=== PATIENT | male | born 1935 | race Caucasian/White ===

== ENCOUNTER 2018-06-06 17:20 | Inpatient (IN) ==
[2018-06-06] MEDS ORDERED: SALINE FLUSH 10ml SYRINGE IVF PRN (17:32)
[2018-06-06] MEDS ORDERED: NS 1,000 ML IV ONE (17:32)
--- NOTE | 2018-06-06 18:06 | Emergency Department Report ---
General Adult HPI - General Chief complaint: Medical Emergency Stated complaint: heat exhaustion Time Seen by Provider: 06/06/18 17:32 - History of Present Illness HPI narrative: 82-year-old male presents with possible heat exhaustion. Patient has had 2 episodes now in the last 2 weeks where he has gotten outside in the heat and after a few hours of working in the yard has had significant weakness and nausea. He did develop some confusion 2 weeks ago which resolved once he got fluids. However today he went back out into the yard, began to have some symptoms develop as he was actively working in the heat. He became very weak, lightheaded and came inside to lay down. Family is concerned about him in for evaluation. He has no history of any illness recently. No dysuria no hesitancy no urgency, no coughing. Has a slight headache right now but has not had any issues with headaches in the past. Heart began racing this afternoon and he noted shortness of breath with exertion, but was fine at rest. - Related Data Home Medications Medication Instructions Recorded Confirmed Atorvastatin Calcium 20 mg PO HS #0 05/18/15 06/06/18 CALCIUM CITRATE 315mg + D 2 tab PO HS 07/19/17 06/06/18 [Citrical + D] Aspirin [Adult Aspirin] 81 mg PO HS 05/21/18 06/06/18 Finasteride [Proscar] 5 mg PO HS 05/21/18 06/06/18 Lisinopril [Prinivil] 2.5 mg PO HS 05/21/18 06/06/18 Multivitamin [One Daily] 1 tab PO HS 05/21/18 06/06/18 Nitroglycerin [Nitrostat] 0.4 mg SL Q5MIN3 PRN 05/21/18 06/06/18 Warfarin [Coumadin] 1 mg PO 5XW 05/21/18 06/06/18 Warfarin [Coumadin] 5 mg PO 5XW 05/21/18 06/06/18 Warfarin [Coumadin] 2 mg PO WESA 06/06/18 06/06/18 Allergies Allergy/AdvReac Type Severity Reaction Status Date / Time morphine AdvReac Severe VERY Verified 06/06/18 18:07 AGITATED, UNABLE TO CALM DOWN Review of Systems All systems: reviewed and negative except as stated PFSH Patient Stated Medical History Other HEENT Yes: glasses Cardiac Arrhythmia Yes: afib/flutter Hypertension Yes Valvular Heart Disease Yes Gastroesophageal Reflux Yes Disease Clotting Problems Yes Other Hematologic Yes: factor 5 liden Surgical History: tonsils. cardiac bypass: valve replacement (mitral valve prolapse repair). (prostate biopsy, vasectomy) - Social History Smoking status: Never smoker Physical Exam - Limitations Limitations: no limitations - General General appearance: alert - Normal Exams: Head:: Normocephalic without trauma Chest/Respirations:: Clear all dickson, with good airflow, and symmetry bilaterally Abdomen:: Bowel sounds positive, soft, non-tender, non-distended, no hepatosplenomegaly, masses or bruits noted - Cardiovascular Cardiovascular exam: Present: normal rhythm, tachycardia Course Vital Signs Temperature 98.0 F 06/06/18 17:26 Pulse Rate 113 H 06/06/18 17:26 Respiratory Rate 20 06/06/18 17:26 Blood Pressure 137/91 H 06/06/18 17:26 Pulse Oximetry 96 06/06/18 17:26 Temperature 98.0 F 06/06/18 17:26 Pulse Rate 113 H 06/06/18 17:45 Respiratory Rate 16 06/06/18 17:45 Blood Pressure 129/89 06/06/18 17:45 Pulse Oximetry 97 06/06/18 17:45 Medical Decision Making - [facility] [place] Narrative Medical decision making narrative: Peripheral IV placed with 1 L normal saline bolus. [place] is that this is dehydration and heat exhaustion. However EKG calls atrial fibrillation. Cardiac workup started this point with troponin ordered. Due to symptoms, lactate and blood cultures were also ordered. CBC, CMP, UA pending. Chest x-ray pending. Labs return appropriate, patient is in atrial fibrillation. Patient was given IV fluids, plan was to rate control with Cardizem, however patient rate controlled with IV fluids and continued with atrial fibrillation with heart rate 60-70. Blood pressure stable. Troponin and other labs returned negative. I have spent the last 45 minutes attempting to contact the patient's teacher's assistant or on-call doctor. I am waiting for a callback at this time. I was ultimately able to speak with Dr. Hernandez, director semiconductor. He declined transfer this he felt that admit was unnecessary at this time. I contacted Dr. Almeida who is covering M [facility]lett call for us. He agreed to admit the patient, patient be placed in observation for atrial fibrillation, dehydration. - Differential Diagnosis atrial fibrillation, dehydration, heat exhaustion - Medical Records Medical records reviewed: Yes: I reviewed the patient's medical records. - Lab Data Result diagrams: 06/06/18 17:49 06/06/18 17:49 Lab Results 06/06/18 Range/Units 17:49 WBC 4.7 (4.5-11.0) T/MM3 RBC 4.50 (4.50-5.90) M/MM3 Hgb 13.9 (13.5-17.5) GM/DL Hct 42.0 (41-53) % MCV 93.3 (80-100) UM3 MCH 30.9 (26-34) UUG MCHC 33.1 (31-37) GM/DL RDW Std Deviation 43.6 (36.9-50.2) FL Plt Count 191 (130-400) T/MM3 MPV 9.8 (9.4-12.4) UM3 Immature Gran % (Auto) 0.2 (0.0-0.5) % Neut % (Auto) 59.8 (33-66) % Lymph % (Auto) 24.7 (23-45) % [place] % (Auto) 9.8 H (0-9.0) % Eos % (Auto) 4.9 H (0-4) % Baso % (Auto) 0.6 (0-2) % Neut # (Auto) 2.8 (1.8-7.7) T/MM3 Lymph # (Auto) 1.2 (1-4.8) T/MM3 [place] # (Auto) 0.5 (0-0.8) T/MM3 Eos # (Auto) 0.2 (0-0.5) T/MM3 Baso # (Auto) 0.0 (0-0.2) T/MM3 Abs Immat Gran (auto) 0.01 (0.00-0.03) T/MM3 - EKG Data EKG #1 EKG attestation: Yes: I reviewed and interpreted this EKG. EKG results narrative: 112 bpm Rate: tachycardia Rhythm: other (appears to be sinus tach, however machine reads as atrial fibrillation with RVR.) Mccall/QRS: left axis deviation Interpretation: nonspecific ST-T wave changes Disposition Clinical Impression: A-fib, Dehydration Condition: Stable Prescriptions: No Action Atorvastatin Calcium 20 mg PO HS #0 Aspirin [Adult Aspirin] 81 mg PO HS Multivitamin [One Daily] 1 tab PO HS Finasteride [Proscar] 5 mg PO HS Warfarin [Coumadin] 5 mg PO 5XW Warfarin [Coumadin] 1 mg PO 5XW Nitroglycerin [Nitrostat] 0.4 mg SL Q5MIN3 PRN PRN Reason: Chest Pain Warfarin [Coumadin] 2 mg PO WESA CALCIUM CITRATE 315mg + D [Citrical + D] 2 tab PO HS Lisinopril [Prinivil] 2.5 mg PO HS Referrals: Junior Salinas MD [Primary Care Provider] - Time of Disposition: 19:57 - Seen By: physician
[2018-06-06] MEDS ORDERED: DiltiaZEM 25 MG/5 ML INJECTION IVP ONE (19:06)
[2018-06-06] MEDS ORDERED: NS 1,000 ML IV SCH (19:30)
[2018-06-06] MEDS ORDERED: SALINE FLUSH 10ml SYRINGE IV PRN (20:43)
[2018-06-06] MEDS ORDERED: NITROGLYCERIN 0.4 MG SUBLINGUAL TABLET SL PRN (20:55)
[2018-06-06] MEDS ORDERED: CALCIUM CITRATE 315mg + VIT.D 250units TABLET PO SCH (21:00)
[2018-06-06] MEDS ORDERED: MULTI-VITAMIN PLAIN TABLET PO SCH (21:00)
[2018-06-06] MEDS: LISINOPRIL 2.5 MG TABLET PO SCH (23:05)
[2018-06-06] MEDS: ATORVASTATIN 20 MG TABLET PO SCH (23:06)
[2018-06-06] MEDS: FINASTERIDE 5 MG TABLET PO SCH (23:06)
[2018-06-06] MEDS: ASPIRIN *EC* 81 MG TABLET PO SCH (23:07)
[2018-06-06 23:31] VITALS: BMI 26.7
[2018-06-07] MEDS ORDERED: WARFARIN 1 MG TABLET PO SCH (09:00)
--- NOTE | 2018-06-07 11:29 | Cardiology History & Physical ---
History of Present Illness Chief complaint: Atrial Fibrillation with RVR HPI: Pt is an 82-year-old male with a PMH including paroxysmal atrial fibrillation/ atrial flutter with previous cardioversion,HTN, Heart Failure, CAD s/p CABG ( small bypass on backside of heart), MV repair (on Coumadin therapy, managed by Dr. Taveras), Premature Ventricular Contractions, Factor V Liden Syndrome, and GERD presented with possible heat exhaustion. Patient has had 2 episodes now in the last 2 weeks where he has gotten outside in the heat and after a few hours of working in the yard has had significant weakness and nausea. He did develop some confusion 2 weeks ago which resolved once he got fluids. However yesterday he went back out into the yard, began to have some symptoms develop as he was actively working in the heat. He became very weak, lightheaded and came inside to lay down. Family is concerned about him in for evaluation. He has no history of any illness recently. No dysuria no hesitancy no urgency, no coughing. He had a slight headache upon presentation, but has not had any issues with headaches in the past. Heart began racing yesterday afternoon and he noted shortness of breath with exertion only. Pt is routinely seen by Dr. Taveras. In the ER, peripheral IV was placed with 1 L normal saline bolus given. EKG indicated atrial fibrillation. The plan was to rate control with Cardizem, however patient rate controlled with IV fluids and continued with atrial fibrillation with heart rate 60-70. Blood pressure stable. Troponin and other labs returned negative. Overnight, patient has experienced both bradycardia with pulses in the 40s and 50s with 1st degree AV block, as well as frequent PVCs with pulse up to 112. Pt is admitted to for further evaluation and workup. Review of Systems - Constitutional Constitutional: Absent: chills, fever(s), weakness - EENMT Eyes: Absent: change in vision Balance: Absent: vertigo Mouth/Throat: Absent: sore throat - Cardiovascular Cardiovascular: Absent: chest pain, palpitations, syncope, orthopnea, edema Rhythm: Present: regular rhythm Vascular: Absent: pedal edema - Respiratory Respiratory: Absent: cough, dyspnea, wheezing - Gastrointestinal Gastrointestinal: Absent: abdominal pain, constipation, diarrhea, nausea, vomiting - Musculoskeletal Musculoskeletal: Absent: abnormal gait - Integumentary/Breasts Integumentary: Absent: erythema, rash, swelling, wounds - Neurological Neurological: Absent: abnormal speech, dizziness, vertigo - Psychiatric Psychiatric: Absent: anxiety, depression - Endocrine Endocrine: Absent: palpitations - Hematologic/Lymphatic Hematologic/Lymphatic: Absent: easy bleeding, easy bruising PFS Patient Stated Medical History Other HEENT Yes: glasses Cardiac Arrhythmia Yes: afib/flutter Hypertension Yes Valvular Heart Disease Yes Gastroesophageal Reflux Yes Disease Clotting Problems Yes Other Hematologic Yes: factor 5 liden Surgical History: tonsils. cardiac bypass: valve replacement (mitral valve prolapse repair). (prostate biopsy, vasectomy) Family History: Mother - from CHF in her 70s Father - from stroke in his 90s - Social History Smoking status: Never smoker Substance use type: does not use Alcohol intake frequency: does not drink Current occupational status: retired Current residence: [facility] Medications Home Medications Medication Instructions Recorded Confirmed Type Atorvastatin Calcium 20 mg PO HS #0 05/18/15 06/06/18 History CALCIUM CITRATE 315mg + D 2 tab PO HS 07/19/17 06/06/18 History [Citrical + D] Aspirin [Adult Aspirin] 81 mg PO HS 05/21/18 06/06/18 History Finasteride [Proscar] 5 mg PO HS 05/21/18 06/06/18 History Lisinopril [Prinivil] 2.5 mg PO HS 05/21/18 06/06/18 History Multivitamin [One Daily] 1 tab PO HS 05/21/18 06/06/18 History Nitroglycerin [Nitrostat] 0.4 mg SL Q5MIN3 PRN 05/21/18 06/06/18 History Warfarin [Coumadin] 1 mg PO 5XW 05/21/18 06/06/18 History Warfarin [Coumadin] 5 mg PO 5XW 05/21/18 06/06/18 History Warfarin [Coumadin] 2 mg PO WESA 06/06/18 06/06/18 History Allergies Allergy/AdvReac Type Severity Reaction Status Date / Time morphine AdvReac Severe VERY Verified 06/06/18 18:07 AGITATED, UNABLE TO CALM DOWN Exam Vital signs: Temperature 97.7 F 06/07/18 08:00 Pulse Rate 44 L 06/07/18 08:00 Respiratory Rate 18 06/07/18 08:00 Blood Pressure 139/78 06/07/18 08:00 Pulse Oximetry 95 06/07/18 08:00 - Constitutional no acute distress, well nourished, well developed, cooperative - Routine HEENT Exam Head: Present: normocephalic, atraumatic Eye: Present: PERRL Nose: moist mucous membranes - Routine Neck Exam Present: supple, trachea midline. Absent: JVD - Routine Chest/Breast/Axilla Exam Chest wall: Absent: mass, pacemaker - Routine Respiratory Exam Present: CTA bilaterally. Absent: accessory muscle use, dyspnea, rhonchi, wheezes, crackles - Routine Cardiovascular Exam Present: S1, S2, bradycardia. Absent: JVD - Routine Abdominal Exam Present: soft, non tender - Routine Extremities Exam Present: pulses intact, normal capillary refill. Absent: cyanosis, clubbing, edema - Routine Skin Exam Present: intact, dry, warm, normal turgor. Absent: cyanosis - Routine Neurological Exam Present: alert, oriented X3, moving all extremities, normal speech - Routine Psychiatric Exam Present: normal affect, normal thought process Results 06/07/18 03:38 06/07/18 03:38 Cardiac Enzymes 06/06/18 Range/Units 17:49 AST 32 (17-59) U/L Troponin I < 0.012 (0-0.12) ng/ml CBC 06/06/18 06/07/18 Range/Units 17:49 03:38 WBC 4.7 4.7 (4.5-11.0) T/MM3 RBC 4.50 4.03 L (4.50-5.90) M/MM3 Hgb 13.9 12.4 L (13.5-17.5) GM/DL Hct 42.0 38.3 L (41-53) % Plt Count 191 181 (130-400) T/MM3 Neut # (Auto) 2.8 2.8 (1.8-7.7) T/MM3 Lymph # (Auto) 1.2 1.1 (1-4.8) T/MM3 [place] # (Auto) 0.5 0.5 (0-0.8) T/MM3 Eos # (Auto) 0.2 0.2 (0-0.5) T/MM3 Baso # (Auto) 0.0 0.0 (0-0.2) T/MM3 Comprehensive Metabolic Panel 06/06/18 06/07/18 Range/Units 17:49 03:38 Sodium 146 147 H (136-146) MEQ/L Potassium 4.3 4.0 (3.6-5) MEQ/L Chloride 108 H 111 H (98-107) MEQ/L Carbon Dioxide 29 30 (22-30) MEQ/L BUN 20.0 20.0 (9-20) MG/DL Creatinine 1.0 0.9 (0.8-1.5) mg/dL Glucose 90 75 (75-110) MG/DL Calcium 9.2 8.7 (8.4-10.2) MG/DL AST 32 (17-59) U/L ALT 19 (1-50) U/L Alkaline Phosphatase 55 (38-126) U/L Total Protein 6.8 (6.3-8.2) g/dL Albumin 4.0 (3.5-5.0) g/dL Intake and Output 06/06/18 06/07/18 06/07/18 22:59 06:59 14:59 Intake Total 1827.5 / 1827.5 0 / 0 360 / 360 Balance 1827.5 / 1827.5 0 / 0 360 / 360 Intake: IV 1027.5 / 1027.5 0 / 0 Ns 1,000 ml @ 150 mls/hr IV . 1027.5 / 1027.5 0 / 0 Q6H40M [facility] Rx#:[id number] Oral 800 / 800 360 / 360 Other: # Voids 1 1 Weight 77.5 kg - Imaging and Cardiology Echo: pending EKG results: report reviewed - EKG Interpretation EKG shows: bradycardia EKG interpretations - EKG EKG shows: bradycardia - Dysrhythmias Sinus rhythms and dysrhythmias: sinus rhythm Supraventricular dysrhythmia: atrial fibrillation Ventricular dysrhythmias: ventricular premature complexes - Blocks, axis, hypertrophy, ST abn AV and intraventricular conduction: 1 AV block Chamber hypertrophy or enlargement: left ventricular hypertrophy or enlargement (LVE) Repolarization changes or abnormalities: nonspecific abnormality, ST segment, and/or T wave Hospital Course This is a general summary of the patient's hospital course. For more details refer to the complete medical record. 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 Current visit: Yes Status: Chronic (4) Hypertension Current visit: Yes Status: Acute (5) Valvular heart disease Current visit: Yes Status: Acute (6) Bradycardia Current visit: Yes Status: Chronic (7) Premature ventricular complex Current visit: Yes Status: Chronic (8) GERD (gastroesophageal reflux disease) Current visit: Yes Status: Chronic (9) Hematologic abnormality Current visit: Yes Status: Chronic (10) Chronic anticoagulation Current visit: Yes Status: Chronic - Assessment and Plan Paroxysmal Atrial Fibrillation/Atrial Flutter -Spontaneously Converted following IV fluid administration -Initial ECG: Atrial Fibrillation with RVR, poss LVH, NS-T wave abnormality, HR 112 -06/07/2018 ECG: SB with 1st degree AV block, occasional PVCs, poss LVH, prolonged QT, possible right ventricular conduction delay, HR 55 -Chads-Vasc score - 6/7 -Chronically anticoagulated with Coumadin -TSH pending -Echo pending -Monitor lytes to keep K+.4 and Mg+.2 Dehydration -IV bolus of 1L NS Heart Failure -Per patient report -Unknown type at this time -Echo pending -BNP 889 -Appears Euvolemic CAD s/p CABG -Followed by Dr. Taveras -Continue ASA and statin -No BB at this time d/t bradycardia Hypertension -Resume home lisinopril -Monitor Valvular Heart Disease -s/p Mitral Valve Repair -Echo pending Bradycardia -Pt reports chronic, intermittent, asymptomatic bradycardia -Monitor on tele Premature Ventricular Complexes -Pt reports chronic, frequent PVCs -Monitor lytes as above -Monitor on tele Factor V Liden Syndrome -Chronic anticoagulation with coumadin -INR 2.4 Chronic Anticoagulation -For Factor V Liden and PAF -INR 2.4 -Resume home coumadin -Monitor INR
[2018-06-07] MEDS ORDERED: WARFARIN 2 MG TABLET PO SCH (12:00)
[2018-06-07] MEDS ORDERED: CALCIUM 500 + VIT D 200 TABLET PO SCH (21:00)
[2018-06-07] MEDS: LISINOPRIL 2.5 MG TABLET PO SCH (22:23)
[2018-06-07] MEDS: ASPIRIN *EC* 81 MG TABLET PO SCH (22:24)
[2018-06-07] MEDS: FINASTERIDE 5 MG TABLET PO SCH (22:24)
[2018-06-07] MEDS: ATORVASTATIN 20 MG TABLET PO SCH (22:24)
[2018-06-08 08:28] VITALS: BP 121/78; RESP 16; TEMP 97.2; O2SAT 95
--- NOTE | 2018-06-08 10:15 | XRay Report ---
INDICATION: weakness PROCEDURE: CHEST 2-VIEWS UPRIGHT (PA & LAT) Encounter: Initial Comparison: 05/21/2018 Findings: The lungs are stable in appearance without new focal airspace consolidation. There is no pleural effusion or pneumothorax. The heart size, pulmonary vascularity and mediastinal contours are unchanged. Prior CABG. IMPRESSION: Stable appearance of the chest without acute cardiopulmonary disease. .
[2018-06-08] MEDS ORDERED: WARFARIN 6 MG TABLET PO SCH (12:00)
--- NOTE | 2018-06-08 13:04 | Discharge Summary ---
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 Almeida in 1-2 weeks in the [facility] Paroxysmal Atrial Fibrillation/Atrial Flutter -Spontaneously Converted following IV fluid administration -Initial ECG: Atrial Fibrillation with RVR, poss LVH, NS-T wave abnormality, HR 112 -06/07/2018 ECG: SB with 1st degree AV block, occasional PVCs, poss LVH, prolonged QT, possible right ventricular conduction delay, HR 55 -Chads-Vasc score - 6/7 -Chronically anticoagulated with Coumadin -TSH 1.23 -Echo: EF 45-50%, appropriately functioning MR -Monitor lytes to keep K+.4 and Mg+.2 Dehydration -IV bolus of 1L NS -Resolved Chronic Systolic Heart Failure/HFrEF -Echo: EF 45-50% (baseline according to pt). Appropriately functioning MR -BNP 889 -Appears Euvolemic CAD s/p CABG -Followed by Dr. Taveras -Continue ASA and statin -No BB at this time d/t bradycardia Hypertension -Resume home lisinopril -Monitor Valvular Heart Disease -s/p Mitral Valve Repair -Echo pending Bradycardia -Pt reports chronic, intermittent, asymptomatic bradycardia -Monitor on tele Premature Ventricular Complexes -Pt reports chronic, frequent PVCs -Monitor lytes as above -Monitor on tele Factor V Liden Syndrome -Chronic anticoagulation with coumadin -INR 2.4 Chronic Anticoagulation -For Factor V Liden and PAF -INR 2.4 -Resume home coumadin -Monitor INR - Procedures Procedures: Echo: EF 45-50%, MVR with appropriately functioning valve. Final report pending. - Laboratory Labs: 06/08/18 04:31 06/08/18 04:31 - Radiology Radiology: PROCEDURE: CHEST 2-VIEWS UPRIGHT (PA & LAT) Encounter: Initial Comparison: 05/21/2018 Findings: The lungs are stable in appearance without new focal airspace consolidation. There is no pleural effusion or pneumothorax. The heart size, pulmonary vascularity and mediastinal contours are unchanged. Prior CABG. IMPRESSION: Stable appearance of the chest without acute cardiopulmonary disease. History of Present Illness HPI: Pt is an 82-year-old male with a PMH including paroxysmal atrial fibrillation/ atrial flutter with previous cardioversion,HTN, Heart Failure, CAD s/p CABG ( small bypass on backside of heart), MV repair (on Coumadin therapy, managed by Dr. Taveras), Premature Ventricular Contractions, Factor V Liden Syndrome, and GERD presented with possible heat exhaustion. Patient has had 2 episodes now in the last 2 weeks where he has gotten outside in the heat and after a few hours of working in the yard has had significant weakness and nausea. He did develop some confusion 2 weeks ago which resolved once he got fluids. However yesterday he went back out into the yard, began to have some symptoms develop as he was actively working in the heat. He became very weak, lightheaded and came inside to lay down. Family is concerned about him in for evaluation. He has no history of any illness recently. No dysuria no hesitancy no urgency, no coughing. He had a slight headache upon presentation, but has not had any issues with headaches in the past. Heart began racing yesterday afternoon and he noted shortness of breath with exertion only. Pt is routinely seen by Dr. Taveras. In the ER, peripheral IV was placed with 1 L normal saline bolus given. EKG indicated atrial fibrillation. The plan was to rate control with Cardizem, however patient rate controlled with IV fluids and continued with atrial fibrillation with heart rate 60-70. Blood pressure stable. Troponin and other labs returned negative. Overnight, patient has experienced both bradycardia with pulses in the 40s and 50s with 1st degree AV block, as well as frequent PVCs with pulse up to 112. Pt is admitted to for further evaluation and workup. Hospital Course This is a general summary of the patient's hospital course. For more details refer to the complete medical record. Time spent with patient: less than 15 minutes Resuscitation Status: Full Code Exam Vital signs: Temperature 97.2 F 06/08/18 08:00 Pulse Rate 55 L 06/08/18 08:00 Respiratory Rate 16 06/08/18 08:00 Blood Pressure 121/78 06/08/18 08:00 Pulse Oximetry 95 06/08/18 08:00 - Constitutional no acute distress, well nourished, well developed, cooperative - Routine HEENT Exam Head: Present: normocephalic, atraumatic Eye: Present: EOMI, PERRL ENT: Present: mucous membranes moist - Routine Neck Exam Present: supple, trachea midline. Absent: JVD - Routine Chest/Breast/Axilla Exam Chest wall: Present: tenderness - Routine Respiratory Exam Absent: accessory muscle use, dyspnea, rhonchi, wheezes - Routine Cardiovascular Exam Present: RRR, S1, S2, bradycardia. Absent: JVD - Routine Abdominal Exam Present: soft, normoactive bowel sounds, non distended, non tender - Routine Extremities Exam Present: pulses intact. Absent: cyanosis, clubbing, edema - Routine Skin Exam Present: intact, dry, warm, normal turgor. Absent: cyanosis, erythema, rash - Routine Neurological Exam Present: alert, oriented X3, moving all extremities, normal speech mild ST memory loss - Routine Psychiatric Exam Present: normal affect Comments: Mildly agitated Results 06/08/18 04:31 06/08/18 04:31 Cardiac Enzymes 06/07/18 06/07/18 Range/Units 19:18 22:32 Troponin I < 0.012 < 0.012 (0-0.12) ng/ml Lipids 06/08/18 Range/Units 04:31 Triglycerides 82 (40-160) mg/dL Cholesterol 120 L (132-199) mg/dL HDL Cholesterol 41 (40-60) mg/dL Cholesterol/HDL Ratio 2.9 (0-5.0) RATIO CBC 06/08/18 Range/Units 04:31 WBC 4.5 (4.5-11.0) T/MM3 RBC 4.37 L (4.50-5.90) M/MM3 Hgb 13.4 L (13.5-17.5) GM/DL Hct 41.8 (41-53) % Plt Count 188 (130-400) T/MM3 Comprehensive Metabolic Panel 06/08/18 Range/Units 04:31 Sodium 146 (136-146) MEQ/L Potassium 4.6 (3.6-5) MEQ/L Chloride 107 (98-107) MEQ/L Carbon Dioxide 29 (22-30) MEQ/L BUN 21.0 H (9-20) MG/DL Creatinine 0.8 (0.8-1.5) mg/dL Glucose 65 L (75-110) MG/DL Calcium 9.0 (8.4-10.2) MG/DL Intake and Output 06/07/18 06/08/18 06/08/18 22:59 06:59 14:59 Intake Total 700 / 700 Balance 700 / 700 Intake: Oral 700 / 700 Other: # Voids 4 Weight 77 kg Patient Weight 06/09/18 06:59 Weight 77 kg - Imaging and Cardiology Echo: pending EKG results: report reviewed - EKG Interpretation EKG shows: bradycardia Discharge Plan - Med Rec/Dispo Referrals/Follow Up: Burt Almeida MD [Physician] - (Please call [phone] to schedule appt. Need to be seen within 1-2 weeks.) [place] Instructions: A-fib (Atrial Fibrillation) (GEN), Dehydration (GEN) Prescriptions: Continue Atorvastatin Calcium 20 mg PO HS #0 Aspirin [Adult Aspirin] 81 mg PO HS Multivitamin [One Daily] 1 tab PO HS Finasteride [Proscar] 5 mg PO HS Warfarin [Coumadin] 5 mg PO 5XW Warfarin [Coumadin] 1 mg PO 5XW Nitroglycerin [Nitrostat] 0.4 mg SL Q5MIN3 PRN PRN Reason: Chest Pain Warfarin [Coumadin] 2 mg PO WESA CALCIUM CITRATE 315mg + D [Citrical + D] 2 tab PO HS Lisinopril [Prinivil] 2.5 mg PO HS - Disposition 04 To [facility] Home/Facility - Dismissal Complete Discharge Instructions are:: Complete
[2018-06-08 15:31] VITALS: PULSE 65
--- NOTE | 2018-06-09 11:52 | Transesophageal Echocardiogram ---
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 FINDINGS 1. LEFT VENTRICLE. Left ventricle appears normal in size. Mild concentric left ventricular hypertrophy noted. Left ventricular systolic function is mildly reduced. Mild global hypokinesis noted. Estimated left ventricular ejection fraction is about 45-50%. Unable to accurately assess left ventricular diastolic function on today's study/ 2. RIGHT VENTRICLE. Right ventricle appears normal in size, normal right ventricular wall thickness noted. Right ventricular systolic function is normal. 3. RIGHT ATRIUM. Right atrium appears dilated. 4. LEFT ATRIUM. Left atrium is dilated but moderate dilation noted. 5. INTERATRIAL SEPTUM. Interatrial septum appears intact. No color flow across the septum noted on today's study. 6. MITRAL VALVE. Prior mitral valve repair with annuloplasty ring noted. Repair appears to be good. Only trace essential regurgitation noted. Mildly elevated velocities across the mitral valve but no significant gradient noted on today's study. 7. AORTIC VALVE. Aortic valve is mildly thickened and mildly calcified. Leaflets appear trileaflet in structure. No aortic stenosis noted. No aortic regurgitation noted. 8. TRICUSPID VALVE. Tricuspid valve poorly visualized on today's study. Trivial tricuspid regurgitation noted. 9. PULMONIC VALVE. Pulmonic valve poorly visualized on today's study. Physiologic pulmonary regurgitation noted. 10. INFERIOR VENA CAVA. Inferior vena cava appears normal in size and normal respirophasic variations noted. 11. PULMONARY ARTERY. Estimated pulmonary artery systolic pressure is about 30- 35 mmHg. CONCLUSIONS 1. Mildly reduced left ventricular systolic function. Estimated left ventricular ejection fraction is 45-50%. Mild global hypokinesis. 2. Normal right ventricular systolic function. 3. Prior mitral valve repair in good condition. Trivial mitral regurgitation noted. 4. Trivial tricuspid regurgitation noted. 5. Inferior vena cava is normal in size with normal respirophasic variation. [facility] [place] [facility]
== END 2018-06-08 15:20 | disposition home or self-care (01) | DRG 309 ==
LOC: ED 17:20 → EDHOLD 17:20 → MED 20:45 → EDHOLD 20:45
PROVIDERS: ADMIT Internal Medicine Interventional Cardiology; ATTEND Internal Medicine Interventional Cardiology